=== PATIENT | male | born 1980 | race African-American/Black ===

== ENCOUNTER 2023-09-25 10:30 | Emergency (ER) | payer MEDICAID ==
[~2023-09-25] VITALS: Ht 182.9 cm; Wt 91.0 kg
[2023-09-25 10:36] VITALS: O2SAT 95
[2023-09-25] MEDS: HYDROCODONE/ACETAMINOPHEN 5/325MG TABLET PO STA (11:52)
[2023-09-25] MEDS: KETOROLAC 30MG/ML VIAL IM STA (11:52)
[2023-09-25] MEDS ORDERED: NAPR-681 PO (11:53)
[2023-09-25] MEDS ORDERED: HYDR-4001 MT (11:53)
[2023-09-25 12:08] VITALS: BP 111/60; PULSE 72; RESP 20; TEMP 98
== END 2023-09-25 12:09 | disposition home or self-care (01) ==
LOC: ER 10:30
DX: M25.561 Pain in right knee (principal)
CPT/HCPCS: 73562; 96372; 99283; J1885; Z7610